=== PATIENT | female | born 1995 | race African-American/Black ===

== ENCOUNTER 2017-01-18 11:03 | Emergency (ER) | payer SELFPAY | END 2017-01-18 11:15 | disposition home or self-care (01) | LOC: ER 11:03 | DX: O9A.219 Injury, poisoning and certain other consequences of external causes complicating pregnancy, unspecified trimester (principal); S83.92XA Sprain of unspecified site of left knee, initial encounter; O99.331 Smoking (tobacco) complicating pregnancy, first trimester; F17.210 Nicotine dependence, cigarettes, uncomplicated; X58.XXXA Exposure to other specified factors, initial encounter | CPT/HCPCS: 73560-LT; 84703; 99283 ==